=== PATIENT | female | born 1990 | race Caucasian/White ===

== ENCOUNTER 2017-06-02 00:15 | Emergency (ER) | payer BC, OTHER ==
[~2017-06-02] VITALS: Ht 162.6 cm; Wt 52.0 kg
[~2017-06-02 00:15] MED LIST: LORA0.5T PO
[2017-06-02 01:34] VITALS: BP 111/72; PULSE 89; RESP 16; TEMP 98.5; O2SAT 99
[2017-06-02] MEDS ORDERED: BUSP5TAB PO (01:40)
[2017-06-02] MEDS ORDERED: LEXA10TA PO (01:40)
[2017-06-02] MEDS ORDERED: NORE-44 PO (01:40)
[2017-06-02 02:18] LABS: AUTOMATED NEUTROPHIL # 6.4 TH/MM3 (1.8-7.7); BASOPHIL # 0.1 TH/MM3 (0-0.2); BASOPHIL % 0.7 % (0.0-2.0); EOSINOPHIL # 0.1 TH/MM3 (0-0.4); EOSINOPHIL % 0.9 % (0.0-4.0); HEMATOCRIT 41.4 % (35.0-46.0); HEMOGLOBIN 14.2 GM/DL (11.6-15.3); LYMPH % 32.4 % (9.0-44.0); LYMPHOCYTE # 3.5 TH/MM3 (1.0-4.8); MEAN CELL VOLUME 88.4 FL (80.0-100.0); MEAN CORPUSCULAR HEMOGLOBIN 30.4 PG (27.0-34.0); MEAN CORPUSCULAR HGB CONC 34.4 % (32.0-36.0); MEAN PLATELET VOLUME 7.8 FL (7.0-11.0); MONO % 6.8 % (0.0-8.0); MONOCYTE # 0.7 TH/MM3 (0-0.9); NEUT % 59.2 % (16.0-70.0); PLATELET COUNT 338 TH/MM3 (150-450); RED BLOOD COUNT 4.68 MIL/MM3 (4.00-5.30); WHITE BLOOD COUNT 10.9 TH/MM3 (4.0-11.0)
[2017-06-02 02:22] LABS: BACTERIA, URINE MANY /hpf; BILIRUBIN, URINE NEG (NEG); BLOOD, URINE NEG (NEG); GLUCOSE,URINE NEG (NEG); KETONE, URINE 40 mg/dL (NEG); MUCUS URINE MANY /lpf (OCC); NITRITE,URINE NEG (NEG); PH, URINE 6.5 (5.0-8.5); SQUAMOUS EPITHELIAL CELL URINE 6 /hpf (0-5); URINE COLOR YELLOW (YELLW/STRAW); URINE LEUKOCYTE ESTERASE SMALL (NEG)
[2017-06-02 02:34] LABS: ACETAMINOPHEN LESS THAN 2.0 MCG/ML (10.0-30.0); BICARBONATE 23.8 MEQ/L (21.0-32.0); BLOOD UREA NITROGEN 8 MG/DL (7-18); CALCIUM 8.6 MG/DL (8.5-10.1); CHLORIDE 105 MEQ/L (98-107); CREATININE 0.59 MG/DL (0.50-1.00); GLOMERULAR FILTRATION RATE 123 ML/MIN (>89); GLUCOSE,RANDOM 88 MG/DL (74-106); SODIUM (NA) 136 MEQ/L (136-145)
[2017-06-02] MEDS ORDERED: MACR100C2 PO (02:44)
[2017-06-02] MEDS ORDERED: NITROFURANTOIN MONOHYD MACROCR 100 MG CAP PO ONE (02:45)
--- NOTE | 2017-06-02 02:59 | PD ---
HPI Chief Complaint: Psychiatric Symptoms Time Seen by Provider: 02:43 Travel History International Travel<30 days: No Contact w/Intl Traveler<30days: No Traveled to known affect area: No History of Present Illness HPI 27-year-old white female with a history of anxiety and depression presents to emergency department under [place] act by PD. The patient states that she had just had a severe panic attack and was breaking up with her boyfriend. She states that her boyfriend was telling her everything that was wrong with her. She had contemplated suicide. She was going to kill herself by carbon monoxide inhalation. She was going to sit in the garage in a car. Patient states that she has been treated for anxiety and depression for some time now. She does not believe her medications are working for her. She just started BuSpar. She states that she is under the care of a psychiatrist in [place]. She also states that she has problems with increased urinary frequency and chronic lower abdominal discomfort. Her doctor felt that she may have interstitial cystitis as well as irritable bowel although she states that she has not had any definitive testing. She does have some increased urinary frequency and some slight dysuria. Her last urine test was 2 months ago which was negative according to patient. Patient denies any toxic ingestions. Patient states that she does not smoke. She does drink on occasion. Marijuana on occasion. Denies . PFSH Past Medical History Narrative Medical Anxiety, depression, abnormal MRI consistent with MS, questionable IBS, questionable interstitial cystitis Anxiety: Yes Depression: Yes Cancer: No Cardiovascular Problems: Yes Diabetes: No Patient Takes Glucophage: No Diminished Hearing: No Endocrine: No Genitourinary: No Hepatitis: No Hiatal Hernia: No Hypertension: Yes Immune Disorder: No Medical other: No Musculoskeletal: Yes Neurologic: Yes (MS) Psychiatric: No Reproductive: No Respiratory: No Immunizations Current: Yes Thyroid Disease: No Tetanus Vaccination: < 5 Years Influenza Vaccination: No ?: Unknown LMP: 03/26/17 Past Surgical History Surgical History: No Previous Surgery Abdominal Surgery: No AICD: No Cardiac Surgery: No Ear Surgery: No Endocrine Surgery: No Eye Surgery: No Genitourinary Surgery: No Gynecologic Surgery: No Joint Replacement: No Oral Surgery: No Pacemaker: No Thoracic Surgery: No Social History Alcohol Use: Yes (OCCASIONAL) Tobacco Use: No Substance Use: Yes ([place]) Allergies-Medications (Allergen,Severity, Reaction): Coded Allergies: No Known Allergies (Unverified Adverse Reaction, Unknown, 06/02/17) Reported Meds & Prescriptions Reported Meds & Active Scripts Active Macrobid (Nitrofurantoin Monoh/Nitrofur Macro) 100 Mg Cap 100 Mg PO BID 7 Days Reported Microgestin 1.5/30 (Norethindrone-Ethinyl Estradiol) 1.5-30 Mg-Mcg Tab 1 Tab PO DAILY Buspirone (Buspirone HCl) 5 Mg Tab 5 Mg PO BID Lexapro (Escitalopram Oxalate) 10 Mg Tab 15 Mg PO DAILY Review of Systems General / Constitutional: No: Fever Eyes: No: Visual changes HENT: No: Headaches Cardiovascular: No: Chest Pain or Discomfort Respiratory: No: Shortness of Breath Gastrointestinal: No: Abdominal Pain Genitourinary: No: Dysuria Musculoskeletal: No: Pain Skin: No Rash Neurologic: No: Weakness Psychiatric: Positive: Anxiety, Depression, Suicidal Ideations, Mood Disorder, Substance Abuse, No: Disorder of Thought, Homicidal Ideation Endocrine: No: Polydipsia Hematologic/Lymphatic: No: Easy Bruising Physical Exam Narrative GENERAL: Well-nourished, well-developed patient. Appears anxious and tearful. SKIN: Warm and dry. HEAD: Normocephalic and atraumatic. EYES: No scleral icterus. No injection or drainage. ENT: No nasal drainage noted. Mucous membranes pink. Airway patent. NECK: Supple, trachea midline. Moves head freely without obvious discomfort. CARDIOVASCULAR: Regular rate and rhythm without murmurs, gallops, or rubs. RESPIRATORY: Breath sounds equal bilaterally. No accessory muscle use. GASTROINTESTINAL: Abdomen soft, non-tender, nondistended. EXTREMITIES: No cyanosis or edema. BACK: Nontender without obvious deformity. No CVA tenderness. NEURO: Patient is alert and oriented. no sensorimotor deficits. Nonfocal. Normal speech. PSYCH: No delusions. No auditory or visual hallucinations. Data Data Last Documented VS Vital Signs Date Time Temp Pulse Resp B/P (MAP) Pulse Ox O2 Delivery O2 Flow Rate FiO2 06/02/17 01:34 98.5 89 16 111/72 (85) 99 Orders Orders Urinalysis - C+S If Indicated (06/02/17 01:49) Complete Blood Count With Diff (06/02/17 01:49) Basic Metabolic Panel (Bmp) (06/02/17 01:49) Drug Screen, Random Urine (06/02/17 01:49) Psych Screen (06/02/17 01:49) Tylenol (Acetaminophen) (06/02/17 01:49) Salicylates (Aspirin) (06/02/17 01:49) Alcohol (Ethanol) (06/02/17 01:49) Ed Urine Pregnancytest Poc (06/02/17 01:49) Urine Culture (06/02/17 01:55) Nitrofurantoin Monohyd Macrocr (Macrobid (06/02/17 02:45) Labs Laboratory Tests Test 06/02/17 01:55 White Blood Count 10.9 TH/MM3 Red Blood Count 4.68 MIL/MM3 Hemoglobin 14.2 GM/DL Hematocrit 41.4 % Mean Corpuscular Volume 88.4 FL Mean Corpuscular Hemoglobin 30.4 PG Mean Corpuscular Hemoglobin Concent 34.4 % Red Cell Distribution Width 13.0 % Platelet Count 338 TH/MM3 Mean Platelet Volume 7.8 FL Neutrophils (%) (Auto) 59.2 % Lymphocytes (%) (Auto) 32.4 % Monocytes (%) (Auto) 6.8 % Eosinophils (%) (Auto) 0.9 % Basophils (%) (Auto) 0.7 % Neutrophils # (Auto) 6.4 TH/MM3 Lymphocytes # (Auto) 3.5 TH/MM3 Monocytes # (Auto) 0.7 TH/MM3 Eosinophils # (Auto) 0.1 TH/MM3 Basophils # (Auto) 0.1 TH/MM3 CBC Comment DIFF FINAL Differential Comment Urine Color YELLOW Urine Turbidity HAZY Urine pH 6.5 Urine Specific [place] 1.014 Urine Protein NEG mg/dL Urine Glucose (UA) NEG mg/dL Urine Ketones 40 mg/dL Urine Occult Blood NEG Urine Nitrite NEG Urine Bilirubin NEG Urine Urobilinogen LESS THAN 2.0 MG/DL Urine Leukocyte Esterase SMALL Urine WBC 6 /hpf Urine Squamous Epithelial Cells 6 /hpf Urine Bacteria MANY /hpf Urine Mucus MANY /lpf Microscopic Urinalysis Comment CULTURE INDICATED Blood Urea Nitrogen 8 MG/DL Creatinine 0.59 MG/DL Random Glucose 88 MG/DL Calcium Level 8.6 MG/DL Sodium Level 136 MEQ/L Potassium Level 4.0 MEQ/L Chloride Level 105 MEQ/L Carbon Dioxide Level 23.8 MEQ/L Anion Gap 7 MEQ/L Estimat Glomerular Filtration Rate 123 ML/MIN Salicylates Level LESS THAN 1.7 MG/DL Urine Opiates Screen NEG Acetaminophen Level LESS THAN 2.0 MCG/ML Urine Barbiturates Screen NEG Urine Amphetamines Screen NEG Urine Benzodiazepines Screen NEG Urine Cocaine Screen NEG Urine Cannabinoids Screen NEG Ethyl Alcohol Level LESS THAN 3 MG/DL MDM Medical Decision Making Medical Screen Exam Complete: Yes Emergency Medical Condition: Yes Medical Record Reviewed: Yes Interpretation(s) Laboratory Tests Test 06/02/17 01:55 White Blood Count 10.9 TH/MM3 Red Blood Count 4.68 MIL/MM3 Hemoglobin 14.2 GM/DL Hematocrit 41.4 % Mean Corpuscular Volume 88.4 FL Mean Corpuscular Hemoglobin 30.4 PG Mean Corpuscular Hemoglobin Concent 34.4 % Red Cell Distribution Width 13.0 % Platelet Count 338 TH/MM3 Mean Platelet Volume 7.8 FL Neutrophils (%) (Auto) 59.2 % Lymphocytes (%) (Auto) 32.4 % Monocytes (%) (Auto) 6.8 % Eosinophils (%) (Auto) 0.9 % Basophils (%) (Auto) 0.7 % Neutrophils # (Auto) 6.4 TH/MM3 Lymphocytes # (Auto) 3.5 TH/MM3 Monocytes # (Auto) 0.7 TH/MM3 Eosinophils # (Auto) 0.1 TH/MM3 Basophils # (Auto) 0.1 TH/MM3 CBC Comment DIFF FINAL Differential Comment Urine Color YELLOW Urine Turbidity HAZY Urine pH 6.5 Urine Specific [place] 1.014 Urine Protein NEG mg/dL Urine Glucose (UA) NEG mg/dL Urine Ketones 40 mg/dL Urine Occult Blood NEG Urine Nitrite NEG Urine Bilirubin NEG Urine Urobilinogen LESS THAN 2.0 MG/DL Urine Leukocyte Esterase SMALL Urine WBC 6 /hpf Urine Squamous Epithelial Cells 6 /hpf Urine Bacteria MANY /hpf Urine Mucus MANY /lpf Microscopic Urinalysis Comment CULTURE INDICATED Blood Urea Nitrogen 8 MG/DL Creatinine 0.59 MG/DL Random Glucose 88 MG/DL Calcium Level 8.6 MG/DL Sodium Level 136 MEQ/L Potassium Level 4.0 MEQ/L Chloride Level 105 MEQ/L Carbon Dioxide Level 23.8 MEQ/L Anion Gap 7 MEQ/L Estimat Glomerular Filtration Rate 123 ML/MIN Salicylates Level LESS THAN 1.7 MG/DL Urine Opiates Screen NEG Acetaminophen Level LESS THAN 2.0 MCG/ML Urine Barbiturates Screen NEG Urine Amphetamines Screen NEG Urine Benzodiazepines Screen NEG Urine Cocaine Screen NEG Urine Cannabinoids Screen NEG Ethyl Alcohol Level LESS THAN 3 MG/DL Differential Diagnosis MDM: High Differential diagnoses: Schizophrenia, schizoaffective disorder, bipolar, anxiety, depression, adjustment reaction, mood disorder NOS, ODD, depressive disorder NOS, dementia, dementia with agitation, psychosis NOS, substance induced mood disorder, DMDD, Asperger syndrome, infection,electrolyte abnormality, malingering. Narrative Course Mental health screening discussed with the patient. Psychiatric screen ordered. Patient has a UTI. She is given Macrobid 100 mg by mouth. Prescription for 7 days The patient has been medically cleared. This is medical clearance for psychiatric admission, UTI Diagnosis Primary Impression: Medical clearance for psychiatric admission Additional Impression: UTI Scripts Nitrofurantoin Monohydrate Macrocrystals (Macrobid) 100 Mg Cap 100 MG PO BID for Infection for 7 Days, #14 CAP 0 Refills Prov: Be Sue MD 06/02/17 Condition: Stable Juanjo Sumner Jun 02, 2017 02:59
[2017-06-02] MEDS ORDERED: IBUPROFEN 400 MG TAB PO ONE (05:00)
[2017-06-02 07:20] VITALS: BP 115/78; PULSE 80; RESP 18; TEMP 98.4; O2SAT 98
[2017-06-02 10:15] VITALS: BP 118/74; PULSE 84; RESP 18; TEMP 98; O2SAT 99
[2017-06-02 14:00] VITALS: BP 114/75; PULSE 78; RESP 20
[2017-06-02 17:33] VITALS: BP 114/74; PULSE 89; RESP 20
--- NOTE | 2017-06-02 17:42 | PD.PSY.CON ---
Provisional Diagnosis Admission Date [place]. adjustment disorder with mixed disturbances of emotion and conductf t 43.25 History of Present Illness Service Psychiatry Consult Requested By EDMD Reason for Consult [place] act Primary Care Physician Tyler Vang MD HPI Agent is a 27-year-old white female comes here under a [place] act by the nurse [facility] [place] [facility] [employer] dated 06/02/17 at 12:13 AM that documented reviewed and agreed with. It essentially states that the patient made suicidal statements and has felt like she wanted to harm herself patient stated she has been depressed. Patient seen screen in the emergency department toxicology negative bladder: Negative. At the present time patient sitting quietly in the room on J pod. Patient alert oriented thin slender slight white female nurse Williams present throughout session. Patient states she lives by herself in close proximity to multiple family of origin extended family members. She states she has a history of panic attacks that come out of nowhere with no precipitant or prodromal signs noted. She then started texturing her boyfriend again into large argument on that she put her phone down. At about the same time her brother lives next door came to the house they sat and talked more calm and cooperative with each other. The boyfriend called the police because she did not answer his multiple texturing questions. Patient denies any suicidal homicidal ideation intent or plan at anytime with this. Patient states she does suffer from panic disorder has recently been on Lamisil on to get treatment for that. She has a private psychiatrist and counselor in a prescribing her Lexapro and giving her counseling. At the present time patient does not meet [place] criteria will lift [place] act as okay by psychiatry for patient to be discharged medically clear and stable follow-up with her private psychiatrist and counselor, the been no Rx by me Review of Systems Constitutional: DENIES: Diaphoretic episodes, Fatigue, Fever, Weight gain, Weight loss, Chills, Dizziness, Change in appetite, Night Sweats Endocrine: DENIES: Abnorml menstrual pattern, Heat/cold intolerance, Polydipsia , Polyuria, Polyphagia Eyes: DENIES: Blurred vision, Diplopia, Eye inflammation, Eye pain, Vision loss , Photosensitivity, Double Vision Ears, nose, mouth, throat: DENIES: Tinnitus, Hearing loss, Vertigo, Nasal discharge, Oral lesions, Throat pain, Hoarseness, Ear Pain, Running Nose, Epistaxis, Sinus Pain, Toothache, Odynophagia Respiratory: DENIES: Apneas, Cough, Snoring, Wheezing, Hemoptysis, Sputum production, Shortness of breath Cardiovascular: DENIES: Chest pain, Palpitations, Syncope, Dyspnea on Exertion , PND, Lower Extremity Edema, Orthopnea, Claudication Gastrointestinal: DENIES: Abdominal pain, Black stools, Bloody stools, Constipation, Diarrhea, Nausea, Vomiting, Difficulty Swallowing, Anorexia Genitourinary: DENIES: Abnormal vaginal bleeding, Dysmenorrhea, Dyspareunia, Sexual dysfunction, Urinary frequency, Urinary incontinence, Urgency, Hematuria , Dysuria, Nocturia, Vaginal discharge Musculoskeletal: DENIES: Joint pain, Muscle aches, Stiffness, Joint Swelling, Back pain, Neck pain Integumentary: DENIES: Abnormal pigmentation, Pruritus, Rash, Nail changes, Breast masses, Breast skin changes, Nipple discharge Hematologic/lymphatic: DENIES: Bruising, Lymphadenopathy Immunologic/allergic: DENIES: Eczema, Urticaria Neurologic: DENIES: Abnormal gait, Headache, Localized weakness, Paresthesias, Seizures, Speech Problems, Tremor, Poor Balance Psychiatric: COMPLAINS OF: Anxiety Past Family Social History Coded Allergies: No Known Allergies (Unverified Adverse Reaction, Unknown, 06/02/17) Active Scripts Nitrofurantoin Monohydrate Macrocrystals (Macrobid) 100 Mg Cap, 100 MG PO BID for Infection for 7 Days, #14 CAP 0 Refills Prov:Be Sue MD 06/02/17 Reported Medications Norethindrone-Ethinyl Estradiol (Microgestin .10/03) 1.5-30 Mg-Mcg Tab, 1 TAB PO DAILY for Control, #1 PACK 0 Refills 06/02/17 Buspirone (Buspirone) 5 Mg Tab, 5 MG PO BID for Anxiety, TAB 0 Refills 06/02/17 Escitalopram (Lexapro) 10 Mg Tab, 15 MG PO DAILY, #30 TAB 0 Refills 06/02/17 Family Psych History None noted Social History Patient is single lives by herself in close proximity to multiple family members Patient's Strengths (min. 2) Patient verbal intellectual self care Physical Exam Patient medically cleared ED Vital Signs Vital Signs Date Time Temp Pulse Resp B/P (MAP) Pulse Ox O2 Delivery O2 Flow Rate FiO2 06/02/17 14:00 78 20 114/75 (88) Room Air 06/02/17 10:15 98.0 99 Lab Results Test 06/02/17 01:55 White Blood Count 10.9 TH/MM3 Red Blood Count 4.68 MIL/MM3 Hemoglobin 14.2 GM/DL Hematocrit 41.4 % Mean Corpuscular Volume 88.4 FL Mean Corpuscular Hemoglobin 30.4 PG Mean Corpuscular Hemoglobin Concent 34.4 % Red Cell Distribution Width 13.0 % Platelet Count 338 TH/MM3 Mean Platelet Volume 7.8 FL Neutrophils (%) (Auto) 59.2 % Lymphocytes (%) (Auto) 32.4 % Monocytes (%) (Auto) 6.8 % Eosinophils (%) (Auto) 0.9 % Basophils (%) (Auto) 0.7 % Neutrophils # (Auto) 6.4 TH/MM3 Lymphocytes # (Auto) 3.5 TH/MM3 Monocytes # (Auto) 0.7 TH/MM3 Eosinophils # (Auto) 0.1 TH/MM3 Basophils # (Auto) 0.1 TH/MM3 CBC Comment DIFF FINAL Differential Comment Urine Color YELLOW Urine Turbidity HAZY Urine pH 6.5 Urine Specific [place] 1.014 Urine Protein NEG mg/dL Urine Glucose (UA) NEG mg/dL Urine Ketones 40 mg/dL Urine Occult Blood NEG Urine Nitrite NEG Urine Bilirubin NEG Urine Urobilinogen LESS THAN 2.0 MG/DL Urine Leukocyte Esterase SMALL Urine WBC 6 /hpf Urine Squamous Epithelial Cells 6 /hpf Urine Bacteria MANY /hpf Urine Mucus MANY /lpf Microscopic Urinalysis Comment CULTURE INDICATED Blood Urea Nitrogen 8 MG/DL Creatinine 0.59 MG/DL Random Glucose 88 MG/DL Calcium Level 8.6 MG/DL Sodium Level 136 MEQ/L Potassium Level 4.0 MEQ/L Chloride Level 105 MEQ/L Carbon Dioxide Level 23.8 MEQ/L Anion Gap 7 MEQ/L Estimat Glomerular Filtration Rate 123 ML/MIN Salicylates Level LESS THAN 1.7 MG/DL Urine Opiates Screen NEG Acetaminophen Level LESS THAN 2.0 MCG/ML Urine Barbiturates Screen NEG Urine Amphetamines Screen NEG Urine Benzodiazepines Screen NEG Urine Cocaine Screen NEG Urine Cannabinoids Screen NEG Ethyl Alcohol Level LESS THAN 3 MG/DL Date/Time Source Procedure Growth Status 06/02/17 01:55 Urine Clean Catch Urine Culture Pending Worksheet Mental Status Examination Appearance: Appropriate Consciousness: Alert Orientation: x4 Motor Activity: Normal gait Speech: Unremarkable Language: Adequate Fund of Knowledge: Adequate Attention and Concentration: Adequate Memory: Unremarkable Mood: Appropriate Affect: Appropriate Thought Process & Associations: Intact Thought Content: Appropriate Hallucination Type: None Delusion Type: None Suicidal Ideation: No Suicidal Plan: No Suicidal Intention: No Homicidal Ideation: No Homicidal Plan: No Homicidal Intention: No Insight: Adequate Judgment: Adequate Assessment & Plan Problem List: (1) Adjustment disorder with mixed disturbance of emotions and conduct ICD Codes: F43.25 - Adjustment disorder with mixed disturbance of emotions and conduct Assessment & Plan Estimated LOS: days patient does not meet [place] criteria will lift [place] act. Is okay by psych for discharge when medically clear and stable. No Rx by me. She may continue her on medication. Follow-up private psychiatrist in private counselor Discharge Planning See above Request HC Surrog/Guard Advoc?: No Vu Zavala MD Jun 02, 2017 17:42
--- NOTE | 2017-06-02 18:14 | PD ---
Physical Exam Date Seen by Provider: Jun 02, 2017 Time Seen by Provider: 18:12 Narrative 27-year-old female was brought to the emergency department for psychiatric evaluation. She has been cleared by psychiatry and is up for discharge. I was asked to discharge the patient. She has no suicidal or homicidal thoughts and feels comfortable going home. Data Data Last Documented VS Vital Signs Date Time Temp Pulse Resp B/P (MAP) Pulse Ox O2 Delivery O2 Flow Rate FiO2 06/02/17 18:11 06/02/17 17:33 89 20 Room Air 06/02/17 10:15 98.0 99 Orders Orders Urinalysis - C+S If Indicated (06/02/17 01:49) Complete Blood Count With Diff (06/02/17 01:49) Basic Metabolic Panel (Bmp) (06/02/17 01:49) Drug Screen, Random Urine (06/02/17 01:49) Psych Screen (06/02/17 01:49) Tylenol (Acetaminophen) (06/02/17 01:49) Salicylates (Aspirin) (06/02/17 01:49) Alcohol (Ethanol) (06/02/17 01:49) Ed Urine Pregnancytest Poc (06/02/17 01:49) Urine Culture (06/02/17 01:55) Nitrofurantoin Monohyd Macrocr (Macrobid (06/02/17 02:45) Ibuprofen (Motrin) (06/02/17 05:00) Diet Regular Basic (06/02/17 Breakfast) Diet Regular Basic (06/02/17 Dinner) Labs Laboratory Tests Test 06/02/17 01:55 White Blood Count 10.9 TH/MM3 Red Blood Count 4.68 MIL/MM3 Hemoglobin 14.2 GM/DL Hematocrit 41.4 % Mean Corpuscular Volume 88.4 FL Mean Corpuscular Hemoglobin 30.4 PG Mean Corpuscular Hemoglobin Concent 34.4 % Red Cell Distribution Width 13.0 % Platelet Count 338 TH/MM3 Mean Platelet Volume 7.8 FL Neutrophils (%) (Auto) 59.2 % Lymphocytes (%) (Auto) 32.4 % Monocytes (%) (Auto) 6.8 % Eosinophils (%) (Auto) 0.9 % Basophils (%) (Auto) 0.7 % Neutrophils # (Auto) 6.4 TH/MM3 Lymphocytes # (Auto) 3.5 TH/MM3 Monocytes # (Auto) 0.7 TH/MM3 Eosinophils # (Auto) 0.1 TH/MM3 Basophils # (Auto) 0.1 TH/MM3 CBC Comment DIFF FINAL Differential Comment Urine Color YELLOW Urine Turbidity HAZY Urine pH 6.5 Urine Specific [place] 1.014 Urine Protein NEG mg/dL Urine Glucose (UA) NEG mg/dL Urine Ketones 40 mg/dL Urine Occult Blood NEG Urine Nitrite NEG Urine Bilirubin NEG Urine Urobilinogen LESS THAN 2.0 MG/DL Urine Leukocyte Esterase SMALL Urine WBC 6 /hpf Urine Squamous Epithelial Cells 6 /hpf Urine Bacteria MANY /hpf Urine Mucus MANY /lpf Microscopic Urinalysis Comment CULTURE INDICATED Blood Urea Nitrogen 8 MG/DL Creatinine 0.59 MG/DL Random Glucose 88 MG/DL Calcium Level 8.6 MG/DL Sodium Level 136 MEQ/L Potassium Level 4.0 MEQ/L Chloride Level 105 MEQ/L Carbon Dioxide Level 23.8 MEQ/L Anion Gap 7 MEQ/L Estimat Glomerular Filtration Rate 123 ML/MIN Salicylates Level LESS THAN 1.7 MG/DL Urine Opiates Screen NEG Acetaminophen Level LESS THAN 2.0 MCG/ML Urine Barbiturates Screen NEG Urine Amphetamines Screen NEG Urine Benzodiazepines Screen NEG Urine Cocaine Screen NEG Urine Cannabinoids Screen NEG Ethyl Alcohol Level LESS THAN 3 MG/DL MDM Supervised Visit with [facility]: No Narrative Course 27-year-old female is brought in for psychiatric evaluation. She denies any suicidal or homicidal thoughts and is stable for discharge home. The patient was discharged in stable condition with instructions, including return instructions and follow up instructions. Diagnosis Primary Impression: Medical clearance for psychiatric admission Additional Impression: UTI Referrals: Primary Care Physician call for appointment Patient Instructions: Anxiety (ED), General Instructions, Urinary Tract Infection in Women (ED) Additional Instruction: Follow-up with your primary care physician. Return to the emergency department for any acute worsening of symptoms. Med/Other Pt SpecificInfo: Prescription(s) given Scripts Nitrofurantoin Monohydrate Macrocrystals (Macrobid) 100 Mg Cap 100 MG PO BID for Infection for 7 Days, #14 CAP 0 Refills Prov: Be Sue MD 06/02/17 Disposition: 01 DISCHARGE HOME Condition: Stable Moon Bah Jun 02, 2017 18:14
== END 2017-06-02 18:42 | disposition home or self-care (01) ==
LOC: NEPD 00:15 → NEPJ 18:42
DX: N39.0 Urinary tract infection, site not specified (principal); F32.9 Major depressive disorder, single episode, unspecified; F12.90 Cannabis use, unspecified, uncomplicated; Z79.899 Other long term (current) drug therapy
CPT/HCPCS: 80048; 80307; 81001; 84703; 85025; 87086; 99283